=== PATIENT | female | born 1970 | race Caucasian/White ===

== ENCOUNTER 2018-09-26 15:23 | Inpatient (IN) ==
[2018-09-26] MEDS ORDERED: ZOFRAN IM PRN (16:58)
[2018-09-26] MEDS ORDERED: IMODIUM PO PRN ×2 (16:58)
[2018-09-26] MEDS ORDERED: D5W 1,000 ML IV PRN (16:58)
[2018-09-26] MEDS ORDERED: DULCOLAX PR PRN (16:58)
[2018-09-26] MEDS ORDERED: SENOKOT PO PRN (16:58)
[2018-09-26] MEDS ORDERED: NICOTINE GUM BUCCAL PRN (16:58)
[2018-09-26] MEDS ORDERED: ZOFRAN IV PRN (16:58)
[2018-09-26] MEDS ORDERED: TUBERSOL ID ONE (16:58)
[2018-09-26] MEDS ORDERED: NICODERM PATCH TD PRN (16:58)
[2018-09-26] MEDS ORDERED: PHENOBARBITAL IV PRN (16:58)
[2018-09-26] MEDS ORDERED: SEROQUEL PO PRN (16:58)
[2018-09-26] MEDS ORDERED: MAALOX PLUS LIQUID PO PRN (16:58)
[2018-09-26] MEDS ORDERED: SALINE LOCK IV FLUID XX ONE (17:35)
[2018-09-26 17:40] LABS: AMYLASE 91 U/L (20-200); LIPASE 140 U/L (13-60)
[2018-09-26 17:42] LABS: URINE SOURCE CLEAN CATCH
[2018-09-26 17:57] LABS: BILIRUBIN URINE NEGATIVE (NEGATIVE); BLOOD URINE NEGATIVE (NEGATIVE); CLARITY CLEAR (CLEAR); COLOR YELLOW; GLUCOSE URINE NEGATIVE (NEGATIVE); KETONE URINE NEGATIVE (NEGATIVE); LEUKOCYTES URINE NEGATIVE (NEGATIVE); NITRITE URINE NEGATIVE (NEGATIVE); PROTEIN URINE TRACE mg/dL (NEGATIVE); UROBILINOGEN URINE NORMAL
[2018-09-26 18:04] LABS: UR AMPHETAMINES QUAL NONE DETECTED (NONE DETECT); UR BARBITUATES QUAL NONE DETECTED (NONE DETECT); UR BENZODIAZEPIN QUAL NONE DETECTED (NONE DETECT); UR CANNABINOIDS QUAL PRESUMPTIVE POSITIVE (NONE DETECT); UR COCAINE QUAL NONE DETECTED (NONE DETECT); UR METHADONE QUAL NONE DETECTED (NONE DETECT); UR METHAMPHETAMINE QUAL NONE DETECTED (NONE DETECT); UR OPIATES QUAL NONE DETECTED (NONE DETECT); UR OXYCODONE QUAL NONE DETECTED (NONE DETECT); UR PCP QUAL NONE DETECTED (NONE DETECT); UR PROPOXYPHENE QUAL NONE DETECTED (NONE DETECT); UR TCA QUAL PRESUMPTIVE POSITIVE (NONE DETECT)
[2018-09-26] MEDS: LIBRIUM PO SCH ×2 (18:17→23:50)
[2018-09-26] MEDS: MOTRIN PO PRN (18:18)
[2018-09-26 18:20] LABS: URINE BACTERIA 1+ /HFP; URINE CAST NONE SEEN /LPF; URINE CRYSTAL NONE SEEN /HPF; URINE EPITHELIAL CELLS >10 /HPF (<10); URINE WBC <10 /HPF (<10); URINE YEAST NONE SEEN /HPF
[2018-09-26] MEDS ORDERED: M.V.I.-12 10 ML, FOLIC ACID 1 MG, MAGNESIUM SULFATE 1 GM, THIAMINE 100 MG in NS 1,000 ML IV ONE (18:30)
[2018-09-26] MEDS: ROBAXIN PO PRN (19:53)
[2018-09-26] MEDS: ZOFRAN ODT PO PRN (20:04)
[2018-09-26] MEDS: LAMICTAL PO SCH ×2 (21:56)
[2018-09-26] MEDS: CLEOCIN PO SCH (21:56)
[2018-09-26] MEDS: NEURONTIN PO SCH (21:56)
[2018-09-26] MEDS: TYLENOL PO PRN (21:56)
[2018-09-26] MEDS: VIMPAT PO SCH (21:57)
[2018-09-26] MEDS: ELAVIL PO SCH (21:57)
[2018-09-26] MEDS: KEPPRA PO SCH (21:57)
[2018-09-26] MEDS: PRINIVIL PO SCH (22:05)
[2018-09-26] MEDS: DESYREL PO PRN (22:05)
[2018-09-26] MEDS: ATARAX PO PRN (22:06)
[2018-09-26] MEDS: BENTYL PO PRN (22:06)
--- NOTE | 2018-09-27 04:55 | HISTORY AND PHYSICAL ---
CHIEF COMPLAINT: Nausea, vomiting. HISTORY OF PRESENT ILLNESS: The patient is a 47-year-old female who presented to [facility] secondary to nausea, vomiting, abdominal pain, and tremors. Notes that she has had a history of alcoholism and has started redrinking again. She stayed sober for several years, but slowly has fallen back into a bad habits. Notes she has had seizures in the past when she stopped drinking. SOCIAL HISTORY: Patient is . She is on disability. She lives at home in [place]. PAST MEDICAL HISTORY: Significant for epilepsy diagnosed in 2013 after withdrawal from alcohol, hypertension, history of brain bleed, concussion, history of gastric bypass, recurrent dental issues. FAMILY HISTORY: She has a family history of alcoholism. MEDICATIONS: Do not have an active list. We will review this once it is available. ALLERGIES: Penicillin. REVIEW OF SYSTEMS: CIWA score is 32 secondary to nausea, vomiting, moderate tremors, restlessness. She is easily startled and anxious, unable to sit still. She has frequent tremors and myalgias, frequent sweating episodes. She says she has been having dry heaves and nausea, skin feel like pins and needles. She has mild auditory and occasional visual hallucinations. Denies any fevers, chills, cough, congestion. Denies any chest pain, palpitation. Denies any fevers or chills. Denies headaches, blurred vision, change in vision, or focalized weakness. SUBSTANCE ABUSE HISTORY: Patient was in treatment at [facility] in 2009, stayed 30 days and remained sober for almost 8 years. She notes that alcohol has created financial and relationship problems. Started drinking at age 19. She stayed sober for 8 years. Currently, she is back to a half a box of wine 2 to 3 times a week. Takes Valium as directed only as needed for seizures. She has been taking tramadol for approximately 2 weeks, 4 to 6 pills a day by prescription. PHYSICAL EXAMINATION: VITAL SIGNS: Reviewed and stable. GENERAL: Patient is awake, alert, oriented. She is very pleasant. She is fidgety, anxious, unable sit still, has to be redirected to answer questions. HEENT: Normocephalic. NECK: Supple. CARDIOVASCULAR: Regular rate. No murmurs. CHEST: Clear and nonlabored. ABDOMEN: Soft, nondistended, nontender. EXTREMITIES: Moves all extremities. NEUROLOGIC: No focal changes. ASSESSMENT: 1. Nausea, vomiting. 2. Abdominal pain. 3. Myalgias. 4. Paresthesias. 5. Paroxysmal sweating. 6. 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 7. Alcoholism and withdrawal. 8. History of seizures due to withdrawal. PLAN: We will admit patient to the hospital. High-dose Librium. We will continue to follow. We will address her home medications when available. Discussed with her that she needs to avoid tramadol given her history of seizures and tramadol's ability to lower seizure threshold. cc: Silvestre Medina MD
[2018-09-27] MEDS: PROTONIX PO SCH (06:31)
[2018-09-27] MEDS: LIBRIUM PO SCH ×4 (06:31→23:12)
[2018-09-27] MEDS: VITAMIN B-1 PO SCH (08:05)
[2018-09-27] MEDS: CLEOCIN PO SCH ×3 (08:05→20:12)
[2018-09-27] MEDS: LAMICTAL PO SCH ×4 (08:05→20:12)
[2018-09-27] MEDS: VIMPAT PO SCH ×2 (08:05→20:11)
[2018-09-27] MEDS: PRINIVIL PO SCH (08:05)
[2018-09-27] MEDS: KEPPRA PO SCH ×2 (08:05→20:11)
[2018-09-27] MEDS: THERA M PLUS PO SCH (08:05)
[2018-09-27] MEDS: FOLIC ACID PO SCH (08:05)
[2018-09-27] MEDS: MAG-OX PO SCH (08:05)
[2018-09-27] MEDS: NEURONTIN PO SCH ×2 (08:06→20:12)
[2018-09-27] MEDS: PATIENT'S OWN MED PO SCH (08:17)
[2018-09-27] MEDS ORDERED: ATARAX PO PRN (08:21)
[2018-09-27] MEDS: ZOFRAN ODT PO PRN (17:59)
[2018-09-27] MEDS: TYLENOL PO PRN (17:59)
[2018-09-27] MEDS: MOTRIN PO PRN (19:37)
[2018-09-27] MEDS: ELAVIL PO SCH (20:12)
[2018-09-27] MEDS ORDERED: ELAVIL PO SCH (21:00)
--- NOTE | 2018-09-27 21:14 | PROGRESS NOTE ---
DATE: 09/27/2018 SUBJECTIVE: Patient notes that she is doing okay. She still complains of tooth pain from what she feels is an abscess. Denies any fevers or chills. Denies headaches, blurred vision. Notes that her tremors are better. PHYSICAL EXAMINATION: Vital Signs: Reviewed and stable. General: Patient is awake and alert. She is in no current respiratory distress. She is pleasant to talk with. Vital Signs: Temperature 97.7 degrees, pulse 52, respiratory 18, BP 92/62. HEENT: Normocephalic. Neck: Supple. Cardiovascular: Regular rate. No murmurs. Chest: Clear, nonlabored. Abdomen: Soft, nondistended. Extremities: Moves all extremities. ASSESSMENT: 1. General cavities. We will continue clindamycin until she can get to a dentist. 2. Tremors. 3. Myalgias. 4. Paresthesias. 5. Alcohol abuse withdrawal. Continued stabilization. PLAN: 1. We will continue clindamycin for her dental issues. 2. We will continue Librium. Discussed with patient that we will not use Ativan, Librium, etc., intravenously as that is unnecessary. She notes that she did have a gastric bypass and does not absorb. Discussed with her that obviously she is able to absorb something; otherwise, alcohol itself would not have worked. We will continue to follow stated course and wean as tolerated. Currently, her tremors are improved, so she has obviously been absorbing enough. cc: Silvestre Medina MD
[2018-09-28] MEDS: LIBRIUM PO SCH (05:12)
[2018-09-28] MEDS: PROTONIX PO SCH (06:03)
[2018-09-28] MEDS: THERA M PLUS PO SCH (08:22)
[2018-09-28] MEDS: NEURONTIN PO SCH ×2 (08:22→20:46)
[2018-09-28] MEDS: KEPPRA PO SCH ×2 (08:22→20:46)
[2018-09-28] MEDS: CLEOCIN PO SCH ×3 (08:22→20:47)
[2018-09-28] MEDS: MAG-OX PO SCH (08:22)
[2018-09-28] MEDS: FOLIC ACID PO SCH (08:23)
[2018-09-28] MEDS: LAMICTAL PO SCH ×2 (08:23→08:24)
[2018-09-28] MEDS: VITAMIN B-1 PO SCH (08:23)
[2018-09-28] MEDS: VIMPAT PO SCH ×2 (08:23→20:47)
[2018-09-28] MEDS: PRINIVIL PO SCH (09:17)
[2018-09-28] MEDS: PATIENT'S OWN MED PO SCH (09:17)
[2018-09-28] MEDS ORDERED: LIBRIUM PO SCH ×2 (13:00→21:00)
[2018-09-28] MEDS: MOTRIN PO PRN (19:56)
[2018-09-28] MEDS: ELAVIL PO SCH (20:46)
[2018-09-29] MEDS: PROTONIX PO SCH (06:04)
[2018-09-29] MEDS: VITAMIN B-1 PO SCH (08:42)
[2018-09-29] MEDS: KEPPRA PO SCH ×2 (08:42→20:02)
[2018-09-29] MEDS: MOTRIN PO PRN (08:42)
[2018-09-29] MEDS: PRINIVIL PO SCH (08:42)
[2018-09-29] MEDS: CLEOCIN PO SCH ×3 (08:42→20:02)
[2018-09-29] MEDS: LIBRIUM PO SCH (08:43)
[2018-09-29] MEDS: NEURONTIN PO SCH ×2 (08:43→20:02)
[2018-09-29] MEDS: FOLIC ACID PO SCH (08:43)
[2018-09-29] MEDS: THERA M PLUS PO SCH (08:43)
[2018-09-29] MEDS: VIMPAT PO SCH ×2 (08:43→20:02)
[2018-09-29] MEDS: MAG-OX PO SCH (08:43)
--- NOTE | 2018-09-29 09:04 | PROGRESS NOTE ---
DATE: 09/28/2018 SUBJECTIVE: Patient has no current complaints, although she is somewhat sedated. She is sitting up in the bed. She is able to answer some questions, but clearly appears sedated. PHYSICAL EXAMINATION: Vital Signs: Reviewed. Temperature 97.6 degrees, pulse 87, respiratory rate 18, BP 115/89. General: Patient is awake. She is sedated most likely from medications. HEENT: Normocephalic. Neck: Supple. Cardiovascular: Regular rate. No murmurs. Chest: Clear, nonlabored. Abdomen: Soft, nondistended, nontender. Extremities: Moves all extremities. Neurologic: No focal changes. She is awake, does answer questions. She is sitting up. Speech is somewhat slurred. ASSESSMENT: 1. Epilepsy. 2. Hypertension. 3. History of brain bleed. 4. Concussion. 5. Gastric bypass. 6. Tremors. 7. Myalgias. 8. Alcohol abuse withdrawal and admit for stabilization. PLAN: At this point, we are going to decrease her Librium. We are also going to hold some of her seizure medications. She appears to be on 3 different seizure medications. Unsure how compliant she is with these at home. This certainly could be the cause of her sedation as could be her Librium taper. Will continue to follow. Further orders as needed. cc: Silvestre Medina MD
[2018-09-29] MEDS: PATIENT'S OWN MED PO SCH (11:03)
--- NOTE | 2018-09-29 19:57 | PROGRESS NOTE ---
DATE: 09/29/2018 SUBJECTIVE: The patient notes that overall she is feeling better. She is less sedated today. She states she is in a bad mood and generally just pissed. She is not very interested in answering questions. OBJECTIVE: Vital signs reviewed and stable. The patient is awake and alert. Temperature 97.9 degrees, pulse 80, respiratory 18, BP 127/84.General: The patient is in no current respiratory distress. She is much more awake today than she was yesterday. HEENT: Normocephalic. Neck supple. Cardiovascular: Regular rate. No murmurs. Chest clear, nonlabored. Abdomen soft, nondistended. Extremities: Moves all extremities. ASSESSMENT: 1. Nausea and vomiting, improved. 2. Tremors, improved. 3. Myalgias, improved. 4. Alcohol abuse, withdrawal and stabilization. 5. Sedation, likely caused by medications. 6. Seizure disorder. PLAN: We will continue the patient in the hospital. We will wean down Librium further again today. We will follow her sedation. We did stop several of her medications. She was on several medicines that could certainly contribute if not be the cause of her sedation to include Valium, amitriptyline and Lamictal, which have all been held. We will continue her Vimpat, gabapentin and Keppra for her seizures. It certainly seems as though she may have been on too many medications. Unclear as to whether she actually was taking those at home or not. Regardless, we will hold them today. We will follow her clinical course and hopefully home over the next few days. cc: Silvestre Medina MD
[2018-09-29] MEDS: ELAVIL PO SCH (20:02)
[2018-09-29] MEDS: BENTYL PO PRN (23:37)
[2018-09-29] MEDS: ROBAXIN PO PRN (23:37)
[2018-09-30] MEDS: ZOFRAN ODT PO PRN (05:07)
[2018-09-30] MEDS: BENTYL PO PRN (06:16)
[2018-09-30] MEDS: PROTONIX PO SCH (06:16)
[2018-09-30] MEDS: PRINIVIL PO SCH (08:48)
[2018-09-30] MEDS: NEURONTIN PO SCH ×2 (08:48→20:16)
[2018-09-30] MEDS: LIBRIUM PO SCH (08:48)
[2018-09-30] MEDS: THERA M PLUS PO SCH (08:48)
[2018-09-30] MEDS: KEPPRA PO SCH ×2 (08:48→20:16)
[2018-09-30] MEDS: CLEOCIN PO SCH ×3 (08:48→20:16)
[2018-09-30] MEDS: MAG-OX PO SCH (08:49)
[2018-09-30] MEDS: FOLIC ACID PO SCH (08:49)
[2018-09-30] MEDS: VIMPAT PO SCH ×2 (08:49→20:16)
[2018-09-30] MEDS: VITAMIN B-1 PO SCH (08:49)
[2018-09-30] MEDS: PATIENT'S OWN MED PO SCH (08:50)
[2018-09-30] MEDS: ATARAX PO PRN (13:42)
[2018-09-30] MEDS: TYLENOL PO PRN (15:51)
--- NOTE | 2018-09-30 18:32 | PROGRESS NOTE ---
DATE: 09/30/2018 SUBJECTIVE: Patient is much more awake and alert today. She is still very nervous about going home given the fact that she has been sedated for the past 2 days. Notes that her tremors are improved. She is having no muscle aches overall. She does note that she feels better. PHYSICAL EXAMINATION: Vital Signs: Reviewed and stable. Patient is awake, alert. She is in no current respiratory distress. Temp 97.9 degrees, pulse 80, respiratory rate 18, BP 127/84. General: Patient is pleasant. She is awake. She is much more alert. She is in no distress. Speech is regular. Memory is intact. HEENT: Normocephalic. Neck: Supple. Cardiovascular: Regular rate. No murmurs. Chest: Clear, nonlabored. Abdomen: Soft, nontender, nondistended. Extremities: Moves all extremities. ASSESSMENT: 1. Nausea and vomiting, resolved. 2. Metabolic encephalopathy, acute, likely iatrogenically caused with medication, much improved after holding several of her sedative seizure-type medications that she was taking at home. 3. Alcohol abuse, withdrawal, and stabilization. 4. Chronic anxiety, depression. PLAN: We will continue patient in hospital, continue to follow. Decrease her medications, and hopefully she can discharge home tomorrow. Certainly will need ongoing counseling for inpatient but will need at least outpatient if she does not go to further inpatient. cc: Silvestre Medina MD
[2018-09-30] MEDS: ELAVIL PO SCH (20:16)
[2018-10-01] MEDS: DESYREL PO PRN (00:36)
[2018-10-01] MEDS: MOTRIN PO PRN (03:23)
[2018-10-01] MEDS: ATARAX PO PRN (03:23)
[2018-10-01] MEDS: PROTONIX PO SCH (06:04)
[2018-10-01] MEDS: VITAMIN B-1 PO SCH (09:50)
[2018-10-01] MEDS: NEURONTIN PO SCH (09:51)
[2018-10-01] MEDS: CLEOCIN PO SCH (09:51)
[2018-10-01] MEDS: FOLIC ACID PO SCH (09:51)
[2018-10-01] MEDS: KEPPRA PO SCH (09:51)
[2018-10-01] MEDS: THERA M PLUS PO SCH (09:51)
[2018-10-01] MEDS: VIMPAT PO SCH (09:51)
[2018-10-01] MEDS: PRINIVIL PO SCH (09:54)
[2018-10-01] MEDS: MAG-OX PO SCH (09:54)
[2018-10-01] MEDS: PATIENT'S OWN MED PO SCH (09:54)
[2018-10-01 13:17] VITALS: BP 142/78
--- NOTE | 2018-10-03 14:38 | DISCHARGE SUMMARY ---
ADMISSION DATE: 09/26/2018 DISCHARGE DATE: 10/01/2018 DISCHARGE DIAGNOSES: 1. Nausea, vomiting, abdominal pain. 2. Myalgias. 3. Paresthesias. 4. Paroxysmal sweating. 5. Alcohol abuse, withdrawal and stabilization. 6. Seizures during withdrawal. CONSULTATIONS: None. PROCEDURES: None. BRIEF HOSPITAL COURSE: Patient is a 47-year-old female who presented to the hospital, treated in the usual fashion, placed on high-dose Librium taper. We continued to taper this very slowly. Her hospital course was prolonged secondary to the amount of alcohol she has been drinking as well as the amount of other medications she was taking. During the hospital stay we did have to hold several of her medications to include amitriptyline, Lamictal due to her sedation. After holding these for sedation, improved. The patient's hospital course was prolonged as well due to depression. Even on discharge, she was still nervous anxious, worried, and fearful of her going home. We offered rehab but she declined. DISPOSITION: Patient has declined rehab even though she is anxious about going home. Discussed with her to continue to leave off her Elavil as well as Lamictal. She will continue her other home medications of gabapentin, hydroxyzine p.r.n., magnesium, lisinopril 20, Keppra 1000, and Vimpat 100. She will need to follow up outpatient with her neurologist or whomever is treating her seizures. TIME SPENT: Greater than 30 minutes was spent in total care. cc: Silvestre Medina MD
== END 2018-10-01 14:07 | disposition home or self-care (01) | DRG 896 ==
LOC: P.DIRADM 15:58 → P.MEDSURG 16:19
PROVIDERS: ADMIT Family Medicine; ATTEND Family Medicine
CPT/HCPCS: 80104; 80301; 80305; 80307; 80320; 81001; 82055; 82150; 83690; 84703; A9270; G0431; G0434; G0477; G0480; G6040; J3411; J3475; J7030